=== PATIENT | male | born 1930 | race Caucasian/White ===

== ENCOUNTER 2017-01-13 14:38 | Emergency (ER) | payer MEDICARE ==
[2017-01-13 16:08] LABS: HEMOGLOBIN 14.5 gm/dl (14.0-17.5); RED BLOOD COUNT 4.61 M/UL (4.20-5.50); WHITE BLOOD COUNT 7.5 K/UL (4.5-11.0)
[2017-01-13 16:28] LABS: BUN/CREATININE RATIO 25 (0-10)
== END 2017-01-13 17:47 | disposition home or self-care (01) ==
LOC: ER1 14:38
PROVIDERS: Physician Assistant Medical
DX: S39.012A Strain of muscle, fascia and tendon of lower back, initial encounter (principal); I25.810 Atherosclerosis of coronary artery bypass graft(s) without angina pectoris; I10 Essential (primary) hypertension; Z95.1 Presence of aortocoronary bypass graft; X58.XXXA Exposure to other specified factors, initial encounter
CPT/HCPCS: 36415; 72100; 72131; 80053; 81001; 82272; 83690; 85025; 99284